=== PATIENT | female | born 1975 | race Caucasian/White ===

== ENCOUNTER → 2017-04-30 | Outpatient (CLI) | payer BC ==
[~2017-04-30] MED LIST: CMDUNK PO; LVNISUNK; PRENTAB26 PO; [UNRECOGNIZED DRUG - REMARK]
[2017-04-30 18:29] LABS: HEMATOCRIT 38.6 % (37-47); MEAN CELL VOLUME 89.4 fL (80-100); MEAN CORPUSCULAR HEMOGLOBIN 30.6 pg (25-34); MEAN CORPUSCULAR HGB CONC 34.2 g/dl (32-36); MEAN PLATELET VOLUME 9.9 fL (7.4-10.4); PLATELET COUNT 229 K/uL (130-400); RED BLOOD COUNT 4.32 M/uL (4.2-5.4); WHITE BLOOD COUNT 5.48 K/uL (4.8-10.8)
== END | disposition home or self-care (01) ==
LOC: C.LABMFLN 13:30
PROVIDERS: ATTEND Physician Assistant
DX: N92.0 Excessive and frequent menstruation with regular cycle (principal)

== ENCOUNTER → 2017-04-30 | Outpatient (CLI) | payer BC | END | disposition home or self-care (01) | LOC: C.PAPS 13:41 | PROVIDERS: ATTEND Physician Assistant | DX: Z01.419 Encounter for gynecological examination (general) (routine) without abnormal findings (principal); N92.0 Excessive and frequent menstruation with regular cycle ==

== ENCOUNTER → 2017-05-07 | Outpatient (CLI) | payer BC ==
--- NOTE | 2017-05-07 13:17 | MAMMOGRAPHY REPORT ---
BILATERAL DIGITAL DIAGNOSTIC MAMMOGRAM TOMOSYNTHESIS AND TARGETED BILATERAL ULTRASOUND: 05/07/2017 CLINICAL HISTORY: 42-year-old woman presents after her provider palpated a lump in the right upper ou ter quadrant. Also baseline screening mammogram. No strong family history of breast cancer. TECHNIQUE: Bilateral CC and MLO 2-D digital and tomosynthesis images were obtained. The current jennifer dy was also evaluated with the use of computer aided detection (CAD). COMPARISON: No prior exams were available for comparison. BREAST COMPOSITION: The tissue of both breasts is heterogeneously dense, which may obscure small mas ses. FINDINGS: A triangular skin palpable marker overlies the upper outer middle one third of the right br east, denoting the palpable lumps pointed out by the patient. On the right CC tomosynthesis slice 21 , there is a possible portion of a circumscribed border measuring 11 mm in the lateral middle one thi rd of the breast. No definite area of architectural distortion is seen in the right breast. No susp icious calcification. There is an asymmetry in the far posterior left breast, along the posterior ni pple line on the CC view with questionable architectural distortion on the 2-D image that effaces on the corresponding tomosynthesis slices. However, further evaluation with ultrasound was performed. No other focal area of architectural distortion, suspicious mass or suspicious calcifications are see n in the left breast. Targeted ultrasound was performed in the right upper outer quadrant, and in the left breast 12:00, re troareolar and 6:00 axes. In the right 9:30 breast, 4 cm from the nipple, there are 2 abutting anech oic oval parallel circumscribed benign simple cysts, measuring 14.5 x 7.8 x 14.8 mm in conglomerate. Another small grouping/cluster of small anechoic simple cysts are seen in the 10:00 right breast, 4 cm from the nipple, measuring 9.0 x 5.7 x 10.5 mm in conglomerate. On palpation throughout the right upper outer quadrant, there was diffuse nodularity throughout the 9:00 and 10:00 axes. It is unclea r if these cysts and clusters of cysts could correlate with the nodularity felt on physical exam and therefore clinical follow-up will be needed. In the left breast 6:00 axis 2 cm from the nipple, there is an oval parallel circumscribed predominan tly anechoic cyst with a few thin internal nonvascular septations. This measures 6.5 x 2.9 x 6.5 mm. No other suspicious solid or cystic mass is seen within the left breast and the asymmetry most like ly represented normal overlapping fiberglass glandular tissue. However, given that this is the [facility] exam, a short interval follow-up bilateral diagnostic mammogram and repeat targeted ultrasound in the left 6:00 breast is recommended to ensure stability in 6 months. IMPRESSION: ACR-BI-RADS CATEGORY 3: PROBABLY BENIGN, TARGETED ULTRASOUND ACR-BI-RADS CATEGORY 3: PRO BABLY BENIGN 1. Abutting anechoic cysts and a cluster of cysts are identified in the right 9:00 and 10:00 axes wh ich may correlate with the palpable lumps identified by the patient's provider. No suspicious solid mass was seen. However, clinical follow-up is recommended, as biopsy of a clinically suspicious mass should not be precluded by negative imaging. 2. There is an asymmetry in the far posterior left breast along the posterior nipple line on the CC view, without suspicious sonographic correlate. Although this could represent the patient's normal p arenchymal pattern, given that no prior exams are available to assess stability, a short interval fol low-up diagnostic mammogram is recommended in 6 months. At that time could also perform a repeat keturah gnostic right mammogram to ensure stability given slight asymmetry in the superior aspect of the margaret st on the MLO view. Also repeat targeted ultrasound of the left 6:00 axis at that time. These results and recommendations were discussed with the patient at the time of the exam. Approximately 10% of breast cancers are not detected with mammography. A negative mammographic report should not delay biopsy if a clinically suggestive mass is present. Jessica Dozier M.D. ay/:05/07/2017 12:25:11 Process Control Programmer: Antonia MORRISON)([place]), [facility] letter sent: Follow Up Recommended 3 BI-RADS Code: ACR-BI-RADS Category 3: Probably Benign Ultrasound BI-RADS: ACR-BI-RADS Category 3: Pr obably Benign
== END | disposition home or self-care (01) ==
LOC: C.MAMM 10:25
PROVIDERS: ATTEND Physician Assistant
DX: N63 Unspecified lump in breast (principal)

== ENCOUNTER → 2017-06-04 | Outpatient (CLI) | payer BC ==
[2017-06-04 13:31] LABS: THYROID STIMULATING HORMONE 2.93 uIu/ml (0.300-4.500)
== END | disposition home or self-care (01) ==
LOC: C.LABMFLN 10:19
PROVIDERS: ATTEND Obstetrics & Gynecology
DX: R94.6 Abnormal results of thyroid function studies (principal)

== ENCOUNTER → 2017-11-19 | Outpatient (CLI) | payer BC ==
--- NOTE | 2017-11-19 15:09 | MAMMOGRAPHY REPORT ---
BILATERAL DIGITAL DIAGNOSTIC MAMMOGRAM TOMOSYNTHESIS WITH CAD AND TARGETED BILATERAL ULTRASOUND: 2017 CLINICAL HISTORY: 42-year-old woman presents for follow-up in both breasts for an asymmetry in the munguia perior right breast on the MLO view and in the posterior left breast along the posterior nipple line on the cc view. She initially presented because her provider felt a lump in the right upper outer qu adrant in April 2017. The patient does not definitely feel that area. TECHNIQUE: Bilateral breast tomosynthesis in addition to standard 2D mammography was performed. Curre nt study was also evaluated with a Computer Aided Detection (CAD) system. COMPARISON: Comparison is made to exams dated: 05/07/2017 ultrasound and 05/07/2017 mammogram - [facility]. BREAST COMPOSITION: The tissue of both breasts is heterogeneously dense, which may obscure small mas ses. FINDINGS: There is decreased prominence of asymmetry in the superior right breast on the MLO view. S table asymmetry in the posterior left breast along the posterior nipple line on the CC view measuring 18 mm. There is a possible oval circumscribed 14 mm mass in the subareolar right breast. No other obvious new suspicious mass, microcalcifications, area of architectural distortion or new asymmetry i s identified bilaterally. Targeted ultrasound was performed in the subareolar and periareolar right breast, and also in the lef t breast along the posterior nipple line and slightly lateral to the posterior nipple line to assess for the persistent mammographic asymmetry. In the periareolar and retroareolar right breast, sonogra phically normal tissue is seen without a discrete solid or cystic mass. The possible mammographic ma ss most likely represented normal fibroglandular tissue. In the 6:00 left breast, 2 cm from the nipp le, there is a reniform-shaped parallel hypoechoic solid versus cystic mass measuring 4.5 x 2.0 x 4.0 mm. When comparing back to the prior ultrasound, a cyst was previously seen in the 6:00 left breast , 2 cm from the nipple, measuring 6.5 x 6.5 x 2.9 mm. Therefore the hypoechoic mass likely represent a collapsing/complicated cyst although given the interval change in echotexture, a short interval fo llow-up targeted left breast ultrasound is recommended to ensure stability in 6 months. No other cheri picious solid or cystic mass is seen in the 12:00, retroareolar, 6:00, 5:00 and 1:00 axes of the left breast on targeted ultrasound. IMPRESSION: ACR-BI-RADS CATEGORY 3: PROBABLY BENIGN, TARGETED ULTRASOUND ACR-BI-RADS CATEGORY 3: PRO BABLY BENIGN 1. Stable asymmetry in the posterior left breast on the CC view which most likely represents normal fibroglandular tissue, as no suspicious sonographic correlate was seen. 2. Less prominent asymmetry in the superior right breast and another asymmetry versus possible mass in the subareolar right breast most likely represented normal overlapping tissue as no sonographic co rrelate was currently seen. 3. There is a circumscribed parallel hypoechoic solid versus cystic 4.5 mm mass in the 6:00 left grabiel ast, 2 cm from the nipple on ultrasound, most likely representing a collapsing cyst as an anechoic cy st was previously identified in this location. However, given the change in echotexture, a short int erval follow-up targeted left breast ultrasound in the 6:00 axis is recommended to ensure stability i n 6 months. Bilateral tomosynthesis mammography should also be performed at that time to ensure one year of stability of the left breast asymmetry. Approximately 10% of breast cancers are not detected with mammography. A negative mammographic report should not delay biopsy if a clinically suggestive mass is present. Jessica Dozier M.D. ay/:11/19/2017 10:27:17 Engineering Group Leader: Deja Chairez, [facility] letter sent: Follow Up Recommended 3 BI-RADS Code: ACR-BI-RADS Category 3: Probably Benign Ultrasound BI-RADS: ACR-BI-RADS Category 3: Pr obably Benign
== END | disposition home or self-care (01) ==
LOC: C.MAMM 09:03
PROVIDERS: ATTEND Physician Assistant
DX: N64.89 Other specified disorders of breast (principal)

== ENCOUNTER → 2018-06-03 | Outpatient (CLI) | payer BC ==
--- NOTE | 2018-06-04 07:31 | MAMMOGRAPHY REPORT ---
BILATERAL DIGITAL DIAGNOSTIC MAMMOGRAM TOMOSYNTHESIS WITH CAD AND LEFT ULTRASOUND: 06/03/2018 CLINICAL HISTORY: 43-year-old woman presents for follow-up in both breasts, to reassess an asymmetry in the posterior left breast along the posterior nipple line on the CC view, and asymmetries in the s ubareolar and superior right breast as well as a probably benign sonographic finding in the 6:00 left breast on ultrasound. TECHNIQUE: The study was acquired using full field digital technology and interpreted from soft copy. Breast tomosynthesis in addition to standard 2D mammography was performed. Current study was also ev aluated with a Computer Aided Detection (CAD) system. COMPARISON: Comparison is made to exams dated: 11/19/2017 mammogram, 05/07/2017 mammogram, 05/07/2017 ul trasound, and 11/19/2017 ultrasound - [facility]. BREAST COMPOSITION: The tissue of both breasts is heterogeneously dense, which may obscure small mass es. FINDINGS: An asymmetry in the posterior left breast along the posterior nipple line on the left CC vi ew is somewhat less conspicuous comparing to the prior 2D mammograms and there is no asymmetry or oth er suspicious abnormality on the corresponding tomosynthesis images. This has the appearance of norm al fiber glandular tissue and is considered benign. There is stable asymmetry in the subareolar righ t breast and no longer an asymmetry in the superior right breast. Overall, no suspicious masses, asy mmetries, areas of architectural distortion or calcifications are seen mammographically. Repeat targeted ultrasound was performed in the 6:00 left breast in the area of possible collapsing c yst seen on prior ultrasound. In the 6:00 left breast, 2 cm from the nipple, there is a tiny bilobed circumscribed parallel hypoechoic solid versus cystic mass measuring 3.6 x 1.6 x 2.8 mm. This repre sents continued collapse of a previously observed cyst, which was seen on the May 07, 2017 ultrasoun d and given the continued decrease in size this finding is considered benign. No further close follo w-up is needed at this time. Recommend return to annual screening mammography schedule, which is due in 1 year. 1. Bilateral mammographic asymmetries have the appearance of normal fibroglandular tissue and are co nsidered benign. 2. 2. There is continued interval decrease in size of a sonographically identified cystic mass in the 6:00 left breast, 2 cm from the nipple and this finding is also considered benign. 3. Overall, there is no mammographic evidence of malignancy bilaterally, and no targeted sonographic evidence of malignancy in the left breast. Recommend bilateral screening mammography in 1 year. These results and recommendations were discussed with the patient at the time of the exam. IMPRESSION: ACR BI-RADS CATEGORY 2: BENIGN, ULTRASOUND ACR BI-RADS CATEGORY 2: BENIGN 1. Bilateral mammographic asymmetries have the appearance of normal fibroglandular tissue and are co nsidered benign. 2. 2. There is continued interval decrease in size of a sonographically identified cystic mass in the 6:00 left breast, 2 cm from the nipple and this finding is also considered benign. 3. Overall, there is no mammographic evidence of malignancy bilaterally, and no targeted sonographic evidence of malignancy in the left breast. Recommend bilateral screening mammography in 1 year. These results and recommendations were discussed with the patient at the time of the exam. Some breast cancers are not detected with mammography. A negative mammographic report should not wade y biopsy if a clinically suggestive mass is present. Jessica Dozier M.D. ay/:06/03/2018 12:31:28 Button Sawyer: RT Cait(Tanesha)(M), [facility] letter sent: Normal 1/2 OVERALL STUDY BIRADS: 2 Benign
== END | disposition home or self-care (01) ==
LOC: C.MAMM 08:57
PROVIDERS: ATTEND Obstetrics & Gynecology
DX: N64.89 Other specified disorders of breast (principal); N63.42 Unspecified lump in left breast, subareolar